=== PATIENT | female | born 1960 | race Caucasian/White ===

== ENCOUNTER 2016-03-21 22:25 | Emergency (ER) | payer BC ==
[2016-03-21 22:30] VITALS: BP 192/91; TEMP 98.3
[2016-03-21] MEDS ORDERED: SODIUM CHLORIDE 0.9% 1,000 ML IV STA (22:40)
[2016-03-21] MEDS ORDERED: KETOROLAC 30 MG/ML 1 ML VIAL IVP STA (22:40)
--- NOTE | 2016-03-21 22:53 | ED ---
Fall HPI - General Chief Complaint: Fall Stated Complaint: hip pain Time Seen by Provider: 03/21/16 22:34 Source: patient, RN notes reviewed Mode of arrival: ambulatory - History of Present Illness Initial Comments: 55-year-old female presents to the emergency department with a chief complaint bilateral sided rib pain. Patient about a week ago she tripped and fell. Patient states this causes some increased left hip pain and low back pain. Patient states that then today she started to have some bilateral rib pain. Patient states she felt short of breath and pain when she takes a deep breath. Patient states any heaviness she is not really nauseated there is no diaphoresis with this. Patient states this was new today. Patient's scheduled a doctor's note for tomorrow she just was not comfortable when she is sleeping so she was concerned. Patient denies any recent fever, chills, shortness of breath, abdominal pain, nausea vomiting, numbness or tingling, dysuria or hematuria, constipation or diarrhea, headaches or visual changes, or any other current symptoms. - Related Data Home Medications Medication Instructions Recorded Confirmed Insulin Aspart [NovoLOG] See Protocol SQ AC-TID 12/04/14 03/21/16 Insulin Glargine [Lantus] 35 unit SQ HS 12/04/14 03/21/16 Aspirin EC [Ecotrin Low Dose] 81 mg PO DAILY 03/21/16 03/21/16 Cholecalciferol [Vitamin D3] 1,000 unit PO DAILY 03/21/16 03/21/16 Pyridoxine [Vitamin B-6] 50 mg PO DAILY 03/21/16 03/21/16 Brea's Wort 150 mg PO DAILY 03/21/16 03/21/16 Allergies Allergy/AdvReac Type Severity Reaction Status Date / Time No Known Allergies Allergy Verified 03/21/16 23:40 Review of Systems ROS Statement: Those systems with pertinent positive or pertinent negative responses have been documented in the HPI. ROS Other: All systems not noted in ROS Statement are negative. Past Medical History Past Medical History: Diabetes Mellitus History of Any Multi-Drug Resistant Organisms: None Reported Past Surgical History: Breast Surgery, Heart Catheterization, Orthopedic Surgery , Uterine Ablation Past Psychological History: No Psychological Hx Reported Smoking Status: Never smoker Past Alcohol Use History: None Reported Past Drug Use History: None Reported General Exam - General Exam Comments Initial Comments: General: The patient is awake and alert, in no distress, and does not appear acutely ill. Eye: Pupils are equal, round and reactive to light, extra-ocular movements are intact; there is normal conjunctiva bilaterally. No signs of icterus. Ears, nose, mouth and throat: There are moist mucous membranes and no oral lesions. Neck: The neck is supple, there is no tenderness. Cardiovascular: There is a regular rate and rhythm. No murmur, rub or gallop is appreciated. tenderness to The bilateral sides of the ribs. Respiratory: Lungs are clear to auscultation, respirations are non-labored, breath sounds are equal. No wheezes, stridor, rales, or rhonchi. Gastrointestinal: Soft, non-distended, non-tender abdomen without masses or organomegaly noted. There is no rebound or guarding present. No CVA tenderness. Bowel sounds are unremarkable. Back: There is no tenderness to palpation in the midline. There is no obvious deformity. No rashes noted. Musculoskeletal: Normal ROM, no tenderness, There is no pedal edema. There is no calf tenderness or swelling. Sensation intact. Pulses equal bilaterally 2+. Neurological: CN II-XII intact, There are no obvious motor or sensory deficits. Coordination appears grossly intact. Speech is normal. Skin: Skin is warm and dry and no rashes or lesions are noted. Psychiatric: Cooperative, appropriate mood & affect, normal judgment. Limitations: no limitations Course Vital Signs 03/21/16 22:27 Temperature 98.3 F Pulse Rate 63 Respiratory 18 Rate Blood Pressure 192/91 O2 Sat by Pulse 97 Oximetry - Reevaluation(s) Reevaluation #1: 03/22/16 01:25 Patient was reassessed. Patient states that she is feeling better her pain is completely resolved. Patient states she's somewhat better. X-rays are reviewed that showed no acute process. We discussed the patient is most likely suffering from a lumbar strain due to the fall and then as well as a thoracic strain due to the fall as well. We did discuss patient's laboratory discussed. in the morning return parameters. Patient stated that she understood all her questions have been answered. She will be discharged home. Medical Decision Making - Medical Decision Making 55-year-old female presents emergency department with a chief complaint of low back and left hip pain along with bilateral rib pain. - Lab Data Result diagrams: 03/21/16 23:13 03/21/16 23:13 Lab Results 03/21/16 03/21/16 03/21/16 Range/Units 23:13 23:13 23:13 WBC 8.3 (3.8-10.6) k/uL RBC 5.10 (3.80-5.40) m/uL Hgb 14.5 (11.4-16.0) gm/dL Hct 44.0 (34.0-46.0) % MCV 86.4 (80.0-100.0) fL MCH 28.5 (25.0-35.0) pg MCHC 33.0 (31.0-37.0) g/dL RDW 13.5 (11.5-15.5) % Plt Count 161 (150-450) k/uL Neutrophils % 59 % Lymphocytes % 30 % Monocytes % 7 % Eosinophils % 3 % Basophils % 1 % Neutrophils # 4.8 (1.3-7.7) k/uL Lymphocytes # 2.4 (1.0-4.8) k/uL Monocytes # 0.5 (0-1.0) k/uL Eosinophils # 0.2 (0-0.7) k/uL Basophils # 0.1 (0-0.2) k/uL PT 10.6 (9.0-12.0) sec INR 1.0 (<1.1) APTT 22.8 (22.0-30.0) sec D-Dimer 0.21 (<0.60) mg/L FEU Sodium 137 (137-145) mmol/L Potassium 4.2 (3.5-5.1) mmol/L Chloride 100 (98-107) mmol/L Carbon Dioxide 25 (22-30) mmol/L Anion Gap 12 mmol/L BUN 18 H (7-17) mg/dL Creatinine 0.55 (0.52-1.04) mg/dL Est GFR (MDRD) Af Amer >60 (>60 ml/min/1.73 sqM) Est GFR (MDRD) Non-Af >60 (>60 ml/min/1.73 sqM) Glucose 407 H (74-99) mg/dL POC Glucose (mg/dL) (75-99) mg/dL POC Glu Assessor ID Calcium 9.5 (8.4-10.2) mg/dL Total Bilirubin 0.7 (0.2-1.3) mg/dL AST 51 H (14-36) U/L ALT 125 H (9-52) U/L Alkaline Phosphatase 72 (38-126) U/L Troponin I (0.000-0.034) ng/mL Total Protein 6.6 (6.3-8.2) g/dL Albumin 4.1 (3.5-5.0) g/dL 03/21/16 03/22/16 Range/Units 23:13 00:26 WBC (3.8-10.6) k/uL RBC (3.80-5.40) m/uL Hgb (11.4-16.0) gm/dL Hct (34.0-46.0) % MCV (80.0-100.0) fL MCH (25.0-35.0) pg MCHC (31.0-37.0) g/dL RDW (11.5-15.5) % Plt Count (150-450) k/uL Neutrophils % % Lymphocytes % % Monocytes % % Eosinophils % % Basophils % % Neutrophils # (1.3-7.7) k/uL Lymphocytes # (1.0-4.8) k/uL Monocytes # (0-1.0) k/uL Eosinophils # (0-0.7) k/uL Basophils # (0-0.2) k/uL PT (9.0-12.0) sec INR (<1.1) APTT (22.0-30.0) sec D-Dimer (<0.60) mg/L FEU Sodium (137-145) mmol/L Potassium (3.5-5.1) mmol/L Chloride (98-107) mmol/L Carbon Dioxide (22-30) mmol/L Anion Gap mmol/L BUN (7-17) mg/dL Creatinine (0.52-1.04) mg/dL Est GFR (MDRD) Af Amer (>60 ml/min/1.73 sqM) Est GFR (MDRD) Non-Af (>60 ml/min/1.73 sqM) Glucose (74-99) mg/dL POC Glucose (mg/dL) 358 H (75-99) mg/dL POC Glu Assessor ID Benita Quiles Calcium (8.4-10.2) mg/dL Total Bilirubin (0.2-1.3) mg/dL AST (14-36) U/L ALT (9-52) U/L Alkaline Phosphatase (38-126) U/L Troponin I <0.012 (0.000-0.034) ng/mL Total Protein (6.3-8.2) g/dL Albumin (3.5-5.0) g/dL 03/22/16 01:28 normal sinus rhythm 61 bpm, normal axis, no atopy, no S-T depressions or elevations, - Radiology Data Radiology results: report reviewed, image reviewed Interpreted by me: Chest x-ray: 2 view, interpreted by me: No sign of lobar consolidation, pneumothorax,osseousstructuresappearintact,awaitingofficialradiologyread. Disposition Clinical Impression: Fall, Lumbar strain, Contusion of left hip, Costochondritis Disposition: HOME SELF-CARE Condition: Stable Instructions: Lower Back Exercises (ED) Additional Instructions: Please use medication as discussed. Please follow up with family doctor if symptoms have not improved over the next two days. Please return to the emergency room if your symptoms increase or worsen or for any other concerns. Referrals: Becky Greene DO [Primary Care Provider] - 1-2 days Time of Disposition: 01:37
[2016-03-21 23:33] LABS: ALT 125 U/L (9-52); AST 51 U/L (14-36); Alkaline Phosphatase 72 U/L (38-126); Anion Gap 12 mmol/L; Blood Urea Nitrogen 18 mg/dL (7-17); Calcium 9.5 mg/dL (8.4-10.2); Carbon Dioxide 25 mmol/L (22-30); Chloride 100 mmol/L (98-107); Glucose 407 mg/dL (74-99); Non-African American GFR(MDRD) >60 (>60 ml/min/1.73 sqM); Potassium 4.2 mmol/L (3.5-5.1); Sodium 137 mmol/L (137-145); Total Bilirubin 0.7 mg/dL (0.2-1.3); Total Protein 6.6 g/dL (6.3-8.2)
[2016-03-21 23:44] LABS: Basophils # (A) 0.1 k/uL (0-0.2); Basophils % (A) 1 %; CH 29.5; CHCM 34.3; Eosinophils # (A) 0.2 k/uL (0-0.7); Eosinophils % (A) 3 %; HDW 2.95; HGB 14.5 gm/dL (11.4-16.0); Luc # (Auto) 0.19; Luc % (Auto) 2; Lymphocytes # (A) 2.4 k/uL (1.0-4.8); Lymphocytes % (A) 30 %; MCH 28.5 pg (25.0-35.0); MCV 86.4 fL (80.0-100.0); Mean Platelet Volume 7.4; Monocytes # (A) 0.5 k/uL (0-1.0); Monocytes % (A) 7 %; Neutrophils # (A) 4.8 k/uL (1.3-7.7); Neutrophils % (A) 59 %; Partial Thromboplastin Time 22.8 sec (22.0-30.0); Prothrombin Time 10.6 sec (9.0-12.0); RDW 13.5 % (11.5-15.5); WBC 8.3 k/uL (3.8-10.6); WBC (Perox) 8.08
[2016-03-22] MEDS ORDERED: SODIUM CHLORIDE 0.9% 1,000 ML IV STA (00:23)
[2016-03-22] MEDS ORDERED: INSULIN LISPRO (humaLOG) 300 UNIT/3 ML VIAL SQ ONE (00:23)
[2016-03-22 00:27] LABS: Glucose,Whole Blood 358 mg/dL (75-99)
--- NOTE | 2016-03-22 00:41 | XR ---
EXAMINATION TYPE: XR lumbar spine 2 or 3V DATE OF EXAM: 03/21/2016 11:22 PM CLINICAL HISTORY: Bilateral hip pain. TECHNIQUE: Frontal, lateral, and oblique images of the lumbar spine are obtained. COMPARISON: CT lumbar spine 11/05/2012 FINDINGS: The alignment of vertebral bodies is grossly normal. Mild wedge compression deformity of L 2 vertebra is most likely old. Mild endplate spondylosis is noted with mild degenerative changes in t he lumbar spine. The disc spaces are grossly normal. Surgical clips are noted in the right upper abdomen with cholecystectomy changes. IMPRESSION: No acute fracture or dislocation is seen in the lumbar spine. Mild degenerative changes in the lumbar spine. No significant interval change.
--- NOTE | 2016-03-22 01:15 | XR ---
EXAMINATION TYPE: XR Hip LT and AP Pelvis DATE OF EXAM: 03/21/2016 11:33 PM COMPARISON: NONE HISTORY: Left hip pain TECHNIQUE: A single AP view of the pelvis is obtained. Two views of the left hip are obtained. FINDINGS: There is no acute fracture/dislocation evident in the pelvis. Mild degenerative arthritic changes are suggested in the sacroiliac joints and hip joints bilaterally. The overlying soft tissue appears unremarkable. Two views of left hip show no acute fracture or dislocation. No focal lytic or sclerotic lesion seen in the proximal left femur. The overlying soft tissue is unremarkable. Mild degenerative changes a re suggested in the left hip joint. IMPRESSION: There is no acute fracture or dislocation in the pelvis or left hip. Mild degenerative a rthritic changes are suggested in the left hip joint.
[2016-03-22 01:42] VITALS: PULSE 61; RESP 16
--- NOTE | 2016-03-22 08:17 | XR ---
EXAMINATION TYPE: XR chest 2V DATE OF EXAM: 03/22/2016 7:24 AM COMPARISON: NONE HISTORY: Cough FINDINGS: Lungs are clear. No pleural effusion or pneumothorax. Hypertrophic change of the spine noted. Chronic appearing deformities of the right rib cage suggest remote trauma. IMPRESSION: 1. No acute process.
== END 2016-03-22 01:40 | disposition home or self-care (01) ==
LOC: EC 22:25
DX: S70.02XA Contusion of left hip, initial encounter (principal); S39.012A Strain of muscle, fascia and tendon of lower back, initial encounter; M94.0 Chondrocostal junction syndrome [Tietze]; E11.9 Type 2 diabetes mellitus without complications; Z79.4 Long term (current) use of insulin; Z79.82 Long term (current) use of aspirin; Z98.61 Coronary angioplasty status; Z79.899 Other long term (current) drug therapy; W01.0XXA Fall on same level from slipping, tripping and stumbling without subsequent striking against object, initial encounter
CPT/HCPCS: 99284; 96374; 96361 ×2; 36415 ×2; 93005; 85379; 80053; 84484; 85025; 85610; 85730; 71020; 72100; 73502; J1885

== ENCOUNTER 2019-08-11 00:14 | Emergency (ER) | payer BC ==
[2019-08-11 00:30] VITALS: BP 144/90; PULSE 73; RESP 20; TEMP 98.1
[2019-08-11] MEDS ORDERED: HYDROcodone/APAP 5-325MG 1 EACH TAB PO STA (01:17)
[2019-08-11] MEDS ORDERED: cefTRIAXone 1,000 MG VIAL (IM USE) IM STA (02:10)
[2019-08-11] MEDS ORDERED: ACET/COD 300 MG/30 MG STARTER PACK 6 TAB BTL PO STA (02:30)
--- NOTE | 2019-08-11 02:32 | ED ---
General Adult HPI - General Chief complaint: ENT Stated complaint: LT earache Time Seen by Provider: 08/11/19 00:57 Source: patient, family, RN notes reviewed, old records reviewed Mode of arrival: ambulatory Limitations: no limitations - History of Present Illness Initial comments: 59-year-old female patient received evaluation of left ear pain. Patient was has been ongoing for the last 4 days. Patient was seen by primary care provider and initiated on oral Augmentin and Polytrim drops. She reports that the pain has not improved at all. Denies any recent swimming or exposure to water. Denies any other complaints. Denies any otorrhea. Systemic: Pt denies fatigue, fever/chills, rash. Pt denies weakness, night sweats, weight loss. Neuro: Pt denies headache, visual disturbances, syncope or pre-syncope. HEENT: Pt denies ocular discharge or irritation, rhinorrhea, pharyngitis or notable lymphadenopathy. Cardiopulmonary: Pt denies chest pain, SOB, heart palpitations, dyspnea on exertion. Abdominal/GI: Pt denies abdominal pain, n/v/d. : Pt denies dysuria, burning w/ urination, frequency/urgency. Denies new onset urinary or bowel incontinence. MSK: Pt denies myalgia, loss of strength or function in extremities. Neuro: Pt denies new onset weakness, paresthesias. - Related Data Home Medications Medication Instructions Recorded Confirmed Insulin Aspart [NovoLOG] See Protocol SQ AC-TID 12/04/14 03/21/16 Insulin Glargine [Lantus] 35 unit SQ HS 12/04/14 03/21/16 Aspirin EC [Ecotrin Low Dose] 81 mg PO DAILY 03/21/16 03/21/16 Cholecalciferol [Vitamin D3] 1,000 unit PO DAILY 03/21/16 03/21/16 Pyridoxine [Vitamin B-6] 50 mg PO DAILY 03/21/16 03/21/16 Brea's Wort 150 mg PO DAILY 03/21/16 03/21/16 Allergies Allergy/AdvReac Type Severity Reaction Status Date / Time No Known Allergies Allergy Verified 08/11/19 00:30 Review of Systems ROS Statement: Those systems with pertinent positive or pertinent negative responses have been documented in the HPI. ROS Other: All systems not noted in ROS Statement are negative. Past Medical History Past Medical History: Diabetes Mellitus History of Any Multi-Drug Resistant Organisms: None Reported Past Surgical History: Breast Surgery, Heart Catheterization, Orthopedic Surgery, Uterine Ablation Past Psychological History: No Psychological Hx Reported Smoking Status: Never smoker Past Alcohol Use History: None Reported Past Drug Use History: None Reported General Exam - General Exam Comments Initial Comments: Constitutional: NAD, AOX3, Pt has pleasant affect. HEENT: NC/AT, trachea midline, neck supple, no lymphadenopathy. Posterior pharynx non erythematous, without exudates. External ears appear normal, without discharge. Right tympanic membrane nonerythematous no bulging or perforation. Auditory canal non-erythematous or edematous. Left tympanic membrane erythematous with mild bulging. No otorrhea. Left auditory canal is mildly erythematous and edematous. No posterior mastoid tenderness bilaterally. Mucous membranes moist. Eyes PERRLA, EOM intact. There is no scleral icterus. No pallor noted. Cardiopulmonary: RRR, no murmurs, rubs or gallops, no JVD noted. Lungs CTAB in anterior and posterior villagran. No peripheral edema. Abdominal exam: Abdomen soft and non-distended. Abdomen non-tender to palpation in all 4 quadrants. Bowel sounds active in LLQ. No hepatosplenomegaly. No ecchymosis Neuro: CN II-XII grossly intact. No nuchal rigidity. No raccon eyes, no do sign, no hemotympanum. MSK:Full active ROM in upper and lower extremities, 5/5 stregnth. Limitations: no limitations Course Vital Signs 08/11/19 00:26 Temperature 98.1 F Pulse Rate 73 Respiratory 20 Rate Blood Pressure 144/90 O2 Sat by Pulse 97 Oximetry Medical Decision Making - Medical Decision Making 59-year-old female patient received evaluation of left ear pain. Patient was has been ongoing for the last 4 days. Patient was seen by primary care provider and initiated on oral Augmentin and Polytrim drops. She reports that the pain has not improved at all. Denies any recent swimming or exposure to water. Denies any other complaints. Denies any otorrhea. Physical symptoms are stable, afebrile. Physical exam displayed left tympanic membranes to be erythematous and bulging left auditory canal to be erythematous edematous. Patient administered analgesic emergency department. Administered 1 g of Rocephin intramuscularly. Patient will be changed from Polytrim to ofloxacin drops. Will follow up with ENT and PCP tomorrow. Case discussed with Dr. Llanos. Disposition Clinical Impression: Otitis media Disposition: HOME SELF-CARE Condition: Stable Instructions (If sedation given, give patient instructions): Ear Infection (ED) Additional Instructions: Continue taking Augmentin. Use new ear drops 10 drops in left ear once per day for 7 days. Discontinue previous ear drops. Follow with ear nose and throat physician tomorrow. Follow-up with primary care provider tomorrow. Return to ER if condition worsens. Is patient prescribed a controlled substance at d/c from ED?: No Referrals: Becky Greene DO [Primary Care Provider] - 1-2 days Evelio Hein MD [STAFF PHYSICIAN] - 1-2 days
[2019-08-11] MEDS ORDERED: OFLOXACIN 0.3% OPHTH DROPS 5 ML BOTTLE LEFT EAR STA (02:41)
== END 2019-08-11 03:10 | disposition home or self-care (01) ==
LOC: EC 00:14
DX: H66.92 Otitis media, unspecified, left ear (principal); E11.9 Type 2 diabetes mellitus without complications; Z79.4 Long term (current) use of insulin; Z95.5 Presence of coronary angioplasty implant and graft
CPT/HCPCS: 99283; 96372; J0696

== ENCOUNTER → 2020-04-03 | Outpatient (CLI) | payer BC ==
--- NOTE | 2020-04-07 13:29 | MM ---
Reason for exam: screening (asymptomatic). Last mammogram was performed 5 years and 3 months ago. History: Patient is postmenopausal. Family history of breast cancer in maternal aunt at age 38 and breast cancer in paternal aunt at age 52. Excisional biopsy of the right breast. Right US Core Biopsy of the right breast. Physical Findings: A clinical breast exam by your physician is recommended on an annual basis and results should be correlated with mammographic findings. MG Screening Mammo w CAD Bilateral CC and MLO view(s) were taken. Prior study comparison: January 06, 2015, bilateral MG 3d diag mammo w/cad EMILY. September 18, 2013, left breast MG work up mamm w CAD LT. September 10, 2013, bilateral MG screening mammo w CAD. There are scattered fibroglandular densities. Previous mammotome biopsy in the right breast. Post excisional changes right breast. Stable central left CC asymmetric density. No significant changes when compared with prior studies. ASSESSMENT: Benign, BI-RAD 2 RECOMMENDATION: Routine screening mammogram of both breasts in 1 year.
== END | disposition home or self-care (01) ==
LOC: RADMAMWWP 12:40
PROVIDERS: ATTEND Family Medicine
DX: Z12.31 Encounter for screening mammogram for malignant neoplasm of breast (principal)
CPT/HCPCS: 77067

== ENCOUNTER 2022-02-04 04:54 | Emergency (ER) | payer BC ==
[2022-02-04 05:02] VITALS: BP 164/99; PULSE 71; RESP 16; TEMP 98.2
[2022-02-04 05:02] LABS: Glucose,Whole Blood 309 mg/dL (70-110)
[2022-02-04] MEDS ORDERED: predniSONE 20 MG TAB PO STA (05:12)
[2022-02-04] MEDS ORDERED: KETOROLAC 15 MG/ML 1 ML VIAL IM STA (05:12)
[2022-02-04] MEDS ORDERED: PROCHLORPERAZINE 10 MG TAB PO PRN (05:12)
[2022-02-04] MEDS ORDERED: diphenhydrAMINE 50 MG CAP PO STA (05:12)
--- NOTE | 2022-02-04 05:12 | ED ---
Headache HPI <Nas Zepeda - Last Filed: 02/04/22 12:49> - General Source: RN notes reviewed, old records reviewed Mode of arrival: ambulatory Limitations: no limitations - History of Present Illness MD Complaint: headache -: days(s) (4) Onset Description: gradual Location: frontal Severity: severe Severity scale (1-10): 8 Quality: aching, pulsatile Consistency: constant Improves With: nothing Worsens With: none Context: occurred at rest Associated Symptoms: nausea, vomiting (Started today) Other Symptoms: malaise Treatments Prior to Arrival: none <Humberto Alfred - Last Filed: 02/12/22 23:18> - General Chief Complaint: Headache Stated Complaint: Headache Time Seen by Provider: 02/04/22 05:11 - History of Present Illness Initial Comments: This is a 61-year-old female to the emergency department for evaluation of headache headache is severe. Patient has no recent history of headache no history significant of significant headaches no prior ER visits for headache. Patient states this is the worse headache that she has had she has nausea no vomiting no trauma no fevers. No travel history no sick contacts. No change in medications. No neurological complaints. (Humberto Alfred) - Related Data Home Medications Medication Instructions Recorded Confirmed Aspirin EC [Ecotrin Low Dose] 81 mg PO DAILY 03/21/16 02/04/22 Humulin (Unknown) See Protocol SQ AC-TID 02/04/22 02/04/22 [place]-3/Dha/Epa/Fish Oil [Fish Oil 1 cap PO DAILY 02/04/22 02/04/22 1,000 mg Softgel] Vitamin B Complex 1 cap PO DAILY 02/04/22 02/04/22 Previous Rx's Medication Instructions Recorded Clopidogrel [Plavix] 75 mg PO DAILY #30 tablet 02/04/22 Allergies Allergy/AdvReac Type Severity Reaction Status Date / Time No Known Allergies Allergy Verified 02/04/22 12:03 Review of Systems ROS Other: All systems not noted in ROS Statement are negative. <Nas Zepeda - Last Filed: 02/04/22 12:49> ROS Other: All systems not noted in ROS Statement are negative. <Humberto Alfred - Last Filed: 02/12/22 23:18> ROS Statement: Those systems with pertinent positive or pertinent negative responses have been documented in the HPI. Past Medical History Past Medical History: Diabetes Mellitus History of Any Multi-Drug Resistant Organisms: None Reported Past Surgical History: Breast Surgery, Heart Catheterization, Orthopedic Surgery, Uterine Ablation Past Psychological History: No Psychological Hx Reported Smoking Status: Never smoker Past Alcohol Use History: None Reported Past Drug Use History: None Reported <Humberto Alfred - Last Filed: 02/12/22 23:18> General Exam Limitations: no limitations General appearance: alert, in no apparent distress, anxious Head exam: Present: atraumatic, normocephalic, normal inspection Eye exam: Present: normal appearance, PERRL, EOMI. Absent: scleral icterus, conjunctival injection, periorbital swelling ENT exam: Present: normal exam, mucous membranes moist Neck exam: Present: normal inspection. Absent: tenderness, meningismus, lymphadenopathy Respiratory exam: Present: normal lung sounds bilaterally. Absent: respiratory distress, wheezes, rales, rhonchi, stridor Cardiovascular Exam: Present: regular rate, normal rhythm, normal heart sounds. Absent: systolic murmur, diastolic murmur, rubs, gallop, clicks GI/Abdominal exam: Present: soft, normal bowel sounds. Absent: distended, tenderness, guarding, rebound, rigid Extremities exam: Present: normal inspection, full ROM, normal capillary refill. Absent: tenderness, pedal edema, joint swelling, calf tenderness Back exam: Present: normal inspection Neurological exam: Present: alert, oriented X3, CN II-XII intact Psychiatric exam: Present: normal affect, normal mood Skin exam: Present: warm, dry, intact, normal color. Absent: rash <Humberto Alfred - Last Filed: 02/12/22 23:18> Course <Humberto Alfred - Last Filed: 02/12/22 23:18> Vital Signs 02/04/22 04:59 Temperature 98.2 F Pulse Rate 71 Respiratory 16 Rate Blood Pressure 164/99 O2 Sat by Pulse 98 Oximetry - Reevaluation(s) Reevaluation #1: 02/03/22 Medical record is reviewed Patient symptoms improved here in the ER Patient informed of results and questions answered (Humberto Alfred) Medical Decision Making - Radiology Data Radiology results: report reviewed (CT brain CT angios had neck negative for acute disease), image reviewed <Humberto Alfred - Last Filed: 02/12/22 23:18> - Medical Decision Making 61 female to the emergency department was severe headache worse headache of life. Patient is CT brain CT had given pain control for headache OB seen by neurology here in the ER (Humberto Alfred) - Lab Data Lab Results 02/04/22 Range/Units 05:00 POC Glucose (mg/dL) 309 H (70-110) mg/dL POC Glu Drug Worker ID Concetta Antonio Disposition <Nas Zepeda - Last Filed: 02/04/22 12:49> Is patient prescribed a controlled substance at d/c from ED?: No Time of Disposition: 07:10 <Humberto Alfred - Last Filed: 02/12/22 23:18> Clinical Impression: CVA (cerebral vascular accident), Headache Disposition: Left Against Medical Advice Condition: Good Instructions (If sedation given, give patient instructions): Acute Headache (ED) Prescriptions: Clopidogrel [Plavix] 75 mg PO DAILY #30 tablet Referrals: None,Stated [REFERRING] - 1-2 days
[2022-02-04] MEDS ORDERED: diphenhydrAMINE 50 MG/ML 1 ML VIAL IVP STA (05:17)
[2022-02-04] MEDS ORDERED: DEXAMETHASONE SOD PHOSPHATE 10 MG/ML 1 ML VIAL IV STA (05:17)
[2022-02-04] MEDS ORDERED: SODIUM CHLORIDE 0.9% 1,000 ML IV STA (05:17)
[2022-02-04] MEDS ORDERED: KETOROLAC 15 MG/ML 1 ML VIAL IVP STA ×2 (05:17→10:54)
[2022-02-04] MEDS ORDERED: PROCHLORPERAZINE INJ 10 MG/2 ML VIAL IVP STA (05:18)
--- NOTE | 2022-02-04 08:26 | CT ---
EXAMINATION TYPE: CT angio COW [place] DATE OF EXAM: 02/04/2022 HISTORY: Headache X4 days, nausea/vomiting COMPARISON: 12/04/2014 CT DLP: 1317.4 mGycm. Automated Exposure Control for Dose Reduction was Utilized. TECHNIQUE: CTA scan of the neck is performed without and with IV Contrast, patient injected with 100 mL of Isovue 370, axial images are obtained, coronal and sagittal reformatted images are reviewed. T hree-D reconstructed images are created on an independent workstation and reviewed. Source images ar e reviewed. FINDINGS: CT brain: No suspicious changes for acute intracranial hemorrhage. No acute infarcts are evident. Ryan e subtle subcortical hypodensity is present in the posterior left parietal region. This is age indete rminant. Consider follow-up MRI. Chronic white matter ischemic changes could be considered. This was not present previously. Ventricles and sulci are appropriate for the patient's age. No mass effect or masses are evident. Cervical of [place]: Vertebral basilar system appears normal. Posterior cerebral vasculature is unrema rkable. Internal carotid arteries bifurcate normally into A1 and M1 segments. A2 segments are normal. The anterior communicating artery is patent. Posterior communicating arteries not clearly identified . IMPRESSION: 1. No acute intracranial process radiographically evident. There is some subcortical hypodensity with in the left parietal region of indeterminate age. Consider follow-up MRI to evaluate acute versus chr onic ischemic change. 2. No suspicious acute [place] changes.
--- NOTE | 2022-02-04 13:05 | P.CNNES ---
History of Present Illness Consult date: 02/04/22 Requesting physician: Nas Zepeda Reason for Consult: Abnormal CT head, TIA History of Present Illness: Patient is a 61-year-old right-handed female, with history of diabetes since age 10 years,, but never been told of hypertension, X smoker, came to the hospital today at 4:54 AM because her symptoms started on 02/01/2022 on waking up, when she felt dizzy, headache, nausea. She felt bad, still went to work but was sent home. When she came home, she was talking funny, slightly slurred speech. The slurred speech lasted for all day, and then resolved by the next day. The next day on Monday, she had a bad headache, not feeling well. She saw her primary physician, who felt patient may have a TIA. She took a day off. Patient states that her headache was frontal, last night was very severe 12/10 with nausea and some vomiting, which now has gone. She was light and noise sensitive. The headache was more than her usual migraine. Vital signs unremarkable blood pressure 164/99, pulse rate 71, respirations 16. Computed tomography scan of head and CTA of head and neck revealed no acute intracranial process. Radiographically evident. There is some subcortical hypodensity within the left parietal region of indeterminate age. I personally reviewed CT had come agree with the findings. Consider follow-up MRI to evaluate acute versus chronic ischemic change. No suspicious acute [place] of [place] changes. Patient has history of diabetes for 12 years, never been told of hypertension although she does run high blood pressure. Patient's diabetes is not well controlled with last A1c 10 couple months ago. She has smoked 1 pack per day, off and on for 20 years. She quit tobacco use 25 years ago. she denies any tobacco use or marijuana. Patient has history of migraines for a long time, but has not had any migraines for the last 3 years. Her headaches went into remission since she developed menopause. Her migraines previously used to occur twice a week lasting for about 12 hours. Patient has been taking aspirin 81 mg daily for last 20 years regularly. Patient denies any history of strokes or TIA. Patient does complain of blurred vision on Monday and morning, today she was feeling spots in her vision in her eyes. Denies any numbness tingling focal weakness or facial droop. Review of Systems Constitutional: Denies chills, Denies fever Eyes: bilateral blurred vision, bilateral tunnel vision/blind spots, denies pain Ears: deny: decreased hearing Ears, nose, mouth and throat: Reports headache, Denies sore throat Cardiovascular: Denies chest pain, Denies shortness of breath Respiratory: Denies cough, Denies wheezing Gastrointestinal: Reports nausea, Reports vomiting, Denies abdominal pain, Denies diarrhea Genitourinary: Denies dysuria, Denies hematuria Musculoskeletal: Denies myalgias Integumentary: Denies pruritus, Denies rash Neurological: Reports as per HPI Psychiatric: Denies anxiety, Denies depression Past Medical History Past Medical History: Diabetes Mellitus History of Any Multi-Drug Resistant Organisms: None Reported Past Surgical History: Breast Surgery, Heart Catheterization, Orthopedic Surgery, Uterine Ablation Past Psychological History: No Psychological Hx Reported Smoking Status: Never smoker Past Alcohol Use History: None Reported Past Drug Use History: None Reported Medications and Allergies Home Medications Medication Instructions Recorded Confirmed Type Aspirin EC [Ecotrin Low Dose] 81 mg PO DAILY 03/21/16 02/04/22 History Clopidogrel [Plavix] 75 mg PO DAILY #30 tablet 02/04/22 Rx Humulin (Unknown) See Protocol SQ AC-TID 02/04/22 02/04/22 History [place]-3/Dha/Epa/Fish Oil [Fish Oil 1 cap PO DAILY 02/04/22 02/04/22 History 1,000 mg Softgel] Vitamin B Complex 1 cap PO DAILY 02/04/22 02/04/22 History Allergies Allergy/AdvReac Type Severity Reaction Status Date / Time No Known Allergies Allergy Verified 02/04/22 12:03 Physical Examination - Vital Signs Vital Signs: Vital Signs Temp Pulse Resp BP Pulse Ox 02/04/22 04:59 98.2 F 71 16 164/99 98 Intake and Output 02/03/22 02/04/22 02/04/22 22:59 06:59 14:59 Other: Weight 112.491 kg Patient is a late middle-aged female, in no acute distress. Patient is alert awake oriented to time place and person. Speech and language functions are normal. Patient can name and repeat very well. No aphasia or dysarthria. Attention, concentration and fund of knowledge is adequate. On cranial nerve examination, pupils are equal, round and reacting to light, visual villagran are full on confrontation, with no neglect on double simultaneous stimulation. Extraocular muscles are intact with slight nystagmus to the right. Face is symmetric, tongue protrudes to the midline. Palatal elevation and sensation normal, hearing and shoulder shrug normal, facial sensation normal. On muscle strength testing, there is mild right pronator drift and the strength is normal in arms and legs distally and proximally. Deep tendon reflexes are symmetric, and plantars upgoing bilaterally. Sensory to touch is equal with no neglect on double simultaneous stimulation. Cerebellar function showed no ataxia for [id number] testing. No dysdiadochokinesia. No ataxia for mraa-ps-[id number] testing on either side. Tone and bulk of muscles normal. Gait deferred.. On general examination, there is no carotid bruit or murmur, S1-S2 audible. Chest is clear on consultation. Abdomen is soft nontender. No organomegaly, bowel sounds present. Peripheral pulses are present. No edema. Results - Laboratory Findings Abnormal Lab Findings: Abnormal Labs 02/04/22 05:00 POC Glucose (mg/dL) 309 H Assessment and Plan Assessment: * Probable ischemic stroke manifesting with transient slurred speech, that lasted for 24 hours on 02/01/2022. On examination at this time, there is mild right pronator drift, otherwise examination is nonfocal. * Abnormal CT head, with evidence of possible subacute to chronic ischemia left frontal and left parietal region. * Diabetes, uncontrolled * Hypertension * Obesity * X tobacco use Plan: * Recommend admission to the hospital for observation and workup as below. * MRI brain evaluate for an acute stroke * 2-D echo with bubble study to rule out PFO * Hemoglobin A1c * Lipid panel * Telemetry monitoring * Suggest switching from aspirin to Plavix 75 mg daily. * Patient wants to go home. In that case she may have to sign out AMA. Discussed with the ED staff. * Thank you for the consult.
== END 2022-02-04 13:01 | disposition left against medical advice (07) ==
LOC: EC 04:54
DX: I63.9 Cerebral infarction, unspecified (principal); E11.9 Type 2 diabetes mellitus without complications; I10 Essential (primary) hypertension; E66.9 Obesity, unspecified; Z79.4 Long term (current) use of insulin; Z79.82 Long term (current) use of aspirin; Z68.45 Body mass index [BMI] 70 or greater, adult
CPT/HCPCS: 96375 ×2; 96361 ×2; 96376 ×2; 96374 ×2; 99285 ×2; 36415; 70496; J1200; J0780; J1100; J1885; Q9967

== ENCOUNTER → 2022-07-21 | Outpatient (CLI) | payer OTHER ==
--- NOTE | 2022-07-22 08:38 | MM ---
Reason for Exam: Screening (asymptomatic). Last mammogram was performed 2 year(s) and 4 month(s) ago. Patient History: Menarche at age 9. First Full-Term at age 19. Left ovary removed at age 48. Postmenopausal. Hormonal Contraceptives for 2 years from age 14 until age 16. Core Biopsy on the Right side. Excisional Biopsy on the Right side. Paternal aunt had breast cancer, age 52. Maternal aunt had breast cancer, age 38. Sister had breast cancer, age 41. Risk Values: Collette 5 year model risk: 4.9%. NCI Lifetime model risk: 19.6%. Prior Study Comparison: 09/18/2013 Left Diagnostic Mammogram, [facility]. 01/06/2015 Bilateral Diagnostic Mammogram, [facility]. 04/03/2020 Bilateral Screening Mammogram, [facility]. Tissue Density: There are scattered fibroglandular densities. Findings: Analyzed By CAD. No suspicious calcifications. Nodular density upper outer left breast 13 cm from the nipple requires additional evaluation. Overall Assessment: Incomplete: need additional imaging evaluation, BI-RAD 0 Management: Diagnostic Mammogram of the left breast. . Patient should continue monthly self-breast exams. A clinical breast exam by your physician is recommended on an annual basis. This exam should not preclude additional follow-up of suspicious palpable abnormalities. Note on Collette scores and lifetime risk: 1. A Collette score greater than 3% is considered moderate risk. If this is the case, consider specialist referral to assess eligibility for a risk reducing agent. 2. If overall lifetime risk for the development of breast cancer is 20% or higher, the patient may qualify for future screening with alternating mammogram and breast MRI. Electronically signed and approved by: Harpreet Baker M.D. Radiologis
== END | disposition home or self-care (01) ==
LOC: RADMAMWWP 16:55
PROVIDERS: ATTEND Family Medicine
DX: Z12.31 Encounter for screening mammogram for malignant neoplasm of breast (principal); Z80.3 Family history of malignant neoplasm of breast; Z78.0 Asymptomatic menopausal state
CPT/HCPCS: 77067

== ENCOUNTER → 2022-09-01 | Outpatient (CLI) | payer OTHER ==
--- NOTE | 2022-09-01 09:23 | MM ---
Reason for Exam: Additional evaluation requested from abnormal screening. Last screening mammogram was performed 1 month(s) ago. Patient History: Menarche at age 9. First Full-Term at age 19. Left ovary removed at age 48. Postmenopausal. Hormonal Contraceptives for 2 years from age 14 until age 16. Core Biopsy on the Right side. Excisional Biopsy on the Right side. Paternal aunt had breast cancer, age 52. Maternal aunt had breast cancer, age 38. Sister had breast cancer, age 41. Risk Values: Collette 5 year model risk: 5.1%. NCI Lifetime model risk: 19.0%. Prior Study Comparison: 01/06/2015 Bilateral Diagnostic Mammogram, [facility]. 04/03/2020 Bilateral Screening Mammogram, [facility]. 07/21/2022 Bilateral MG screening mammo w CAD, [facility]. Tissue Density: Left: There are scattered fibroglandular densities. Findings: Analyzed By CAD. Persistent 8 mm circumscribed isodense mass roughly 2:00 position middle to posterior depth left breast. Additional benign vascular and secretory calcifications are noted. Further ultrasound evaluation recommended. Overall Assessment: Incomplete: need additional imaging evaluation, BI-RAD 0 Management: Diagnostic Breast Ultrasound of the left breast. Electronically signed and approved by: Hawk Zapien M.D. Radiologist
--- NOTE | 2022-09-01 09:59 | USB ---
Patient History: Menarche at age 9. First Full-Term at age 19. Left ovary removed at age 48. Postmenopausal. Hormonal Contraceptives for 2 years from age 14 until age 16. Core Biopsy on the Right side. Excisional Biopsy on the Right side. Paternal aunt had breast cancer, age 52. Maternal aunt had breast cancer, age 38. Sister had breast cancer, age 41. Risk Values: Collette 5 year model risk: 5.1%. NCI Lifetime model risk: 19.0%. Technique: Method: Targeted. Prior Study Comparison: 01/06/2015 Bilateral Diagnostic Mammogram, [facility]. 04/03/2020 Bilateral Screening Mammogram, [facility]. 07/21/2022 Bilateral MG screening mammo w CAD, [facility]. Findings: The upper section of the breast of the left breast, the axilla of the left breast and the retroareolar of the left breast were scanned. Targeted ultrasound left breast 2:00 position, 13 cm from the nipple shows a 8 x 7 x 5 mm oval circumscribed very hypoechoic, possibly cystic lesion. It is located deep. Some possible faint posterior through transmission. A cyst is suspected and likely corresponds to the mammographic finding. Six-month follow-up mammogram recommended.. Overall Assessment: Probably benign, BI-RAD 3 Management: Diagnostic Mammogram of the left breast in 6 months. For suspected cyst. This exam should not preclude additional follow-up of suspicious palpable abnormalities. Patient should continue monthly self breast exams. Results were given to the patient verbally at the time of exam. Electronically signed and approved by: Hawk Zapien M.D. Radiologist
== END | disposition home or self-care (01) ==
LOC: RADMAMWWP 08:46
PROVIDERS: ATTEND Family Medicine
DX: R92.8 Other abnormal and inconclusive findings on diagnostic imaging of breast (principal); Z78.0 Asymptomatic menopausal state; Z80.3 Family history of malignant neoplasm of breast
CPT/HCPCS: 77061; 77065

== ENCOUNTER 2023-03-07 14:06 | Emergency (ER) | payer OTHER ==
--- NOTE | 2023-03-07 14:23 | ED ---
General Adult HPI - General Source: patient, RN notes reviewed Mode of arrival: wheelchair Limitations: no limitations <Arelis Ramirez - Last Filed: 03/07/23 14:22> - General Source: RN notes reviewed, old records reviewed Mode of arrival: wheelchair Limitations: no limitations - History of Present Illness -: days(s) Location: left, lower extremity Radiation: extremity Severity scale (1-10): 7 Quality: sharp Consistency: constant Improves with: none Worsens with: none Treatments Prior to Arrival: none <Humberto Alfred - Last Filed: 03/13/23 16:41> - General Chief complaint: Extremity Injury, Lower Stated complaint: Fall-Left knee injury Time Seen by Provider: 03/07/23 14:22 - History of Present Illness Initial comments: 62 year old female presents to the emergency department for evaluation of left knee pain. Patient states she slipped on ice today and states "my knee bent back." She reports pain with weight bearing since the incident. (Arelis Ramirez) This is a 62-year-old female to the emergency department for evaluation of left knee pain after slipping on ice with severe knee pain inability with the swelling. Pain with weightbearing. No other traumatic injury (Humberto Alfred) - Related Data Home Medications Medication Instructions Recorded Confirmed [place]-3/Dha/Epa/Fish Oil [Fish Oil 1 cap PO HS 02/04/22 03/07/23 1,000 mg Softgel] Cyanocobalamin (Vitamin B-12) 1,000 mcg PO DAILY 03/07/23 03/07/23 [Vitamin B-12] Furosemide [Lasix] 40 mg PO DAILY 03/07/23 03/07/23 Insulin Degludec [Tresiba 30 units SQ DAILY 03/07/23 03/07/23 Flextouch U-200 Pen] Magnesium Oxide [Magnesium] 500 mg PO DAILY 03/07/23 03/07/23 Otc Allergy Medication (Unknown) 1 tab PO HS 03/07/23 03/07/23 Potassium Chloride ER [K-Dur 10] 10 meq PO DAILY 03/07/23 03/07/23 Semaglutide [Ozempic] 0.5 mg SQ DIRECTED 03/07/23 03/07/23 Allergies Allergy/AdvReac Type Severity Reaction Status Date / Time No Known Allergies Allergy Verified 03/07/23 15:58 Review of Systems ROS Other: All systems not noted in ROS Statement are negative. <AshleyArelis - Last Filed: 03/07/23 14:22> ROS Other: All systems not noted in ROS Statement are negative. <Humberto Alfred - Last Filed: 03/13/23 16:41> ROS Statement: Those systems with pertinent positive or pertinent negative responses have been documented in the HPI. Past Medical History Past Medical History: Diabetes Mellitus History of Any Multi-Drug Resistant Organisms: None Reported Past Surgical History: Breast Surgery, Heart Catheterization, Orthopedic Surgery, Uterine Ablation Past Psychological History: No Psychological Hx Reported Smoking Status: Never smoker Past Alcohol Use History: None Reported Past Drug Use History: None Reported <AshleyArelis - Last Filed: 03/07/23 14:22> General Exam <Albino Ramirezsey - Last Filed: 03/07/23 14:22> General appearance: alert, in no apparent distress Head exam: Present: atraumatic, normocephalic, normal inspection Eye exam: Present: normal appearance, PERRL, EOMI. Absent: scleral icterus, conjunctival injection, periorbital swelling ENT exam: Present: normal exam, mucous membranes moist Neck exam: Present: normal inspection. Absent: tenderness, meningismus, lymphadenopathy Respiratory exam: Present: normal lung sounds bilaterally. Absent: respiratory distress, wheezes, rales, rhonchi, stridor Cardiovascular Exam: Present: regular rate, normal rhythm, normal heart sounds. Absent: systolic murmur, diastolic murmur, rubs, gallop, clicks GI/Abdominal exam: Present: soft, normal bowel sounds. Absent: distended, tenderness, guarding, rebound, rigid Extremities exam: Present: normal inspection, full ROM, normal capillary refill. Absent: tenderness, pedal edema, joint swelling, calf tenderness Back exam: Present: normal inspection Neurological exam: Present: alert, oriented X3, CN II-XII intact Psychiatric exam: Present: normal affect, normal mood Skin exam: Present: warm, dry, intact, normal color. Absent: rash <Humberto Alfred - Last Filed: 03/13/23 16:41> - General Exam Comments Initial Comments: Visual Physical Exam Vital signs reviewed General: Well-appearing, nontoxic, no acute distress. Head: Normocephalic, atraumatic Eyes: PERRLA, EOMI ENT: Airway patent Chest: Nonlabored breathing Skin: No visual rash, normal skin tone Neuro: Alert and oriented 3 Musculoskeletal: No gross abnormalities (Arelis Ramirez) Course <Humberto Alfred - Last Filed: 03/13/23 16:41> Vital Signs 03/07/23 03/07/23 14:20 16:37 Temperature 98.1 F 98.3 F Pulse Rate 75 67 Respiratory 18 18 Rate Blood Pressure 140/74 161/52 O2 Sat by Pulse 96 98 Oximetry - Reevaluation(s) Reevaluation #1: Medical records reviewed (Humberto Alfred) Reevaluation #2: Patient symptoms improved (Humberto Alfred) Reevaluation #3: Patient informed results and questions have been answered (Humberto Alfred) Reevaluation #4: Was pt. sent in by a medical professional or institution (, PA, CABINET WORKER, urgent care, hospital, or senior living...) When possible be specific @ -no Did you speak to anyone other than the patient for history (EMS, parent, family, police, friend...)? What history was obtained from this source @ -no Did you review nursing and triage notes (agree or disagree)? Why? @ -agree Are old charts reviewed (outside hosp., previous admission, EMS record, old EKG, old radiological studies, urgent care reports/EKG's, senior living records)? Re port findings @ -yes Differential Diagnosis (chest pain, altered mental status, abdominal pain women, abdominal pain men, vaginal bleeding, weakness, fever, dyspnea, syncope, headache, dizziness, GI bleed, back pain, seizure, CVA, palpatations, mental health, musculoskeletal)? @ -prior EKG interpreted by me (3pts min.). @ -no X-rays interpreted by me (1pt min.). @ -yes negative for acute disease CT interpreted by me (1pt min.). @ -no U/S interpreted by me (1pt. min.). @ -no What testing was considered but not performed or refused? (CT, X-rays, U/S, labs)? Why? @ -none What meds were considered but not given or refused? Why? @ -none Did you discuss the management of the patient with other professionals (professionals i.e. , PA, CABINET WORKER, lab, RT, psych nurse, social problems specialist, consumer recruiter, t eacher, traffic control officer, case maker)? Give summary @ -no Was smoking cessation discussed for >3mins.? @ -no Were there social determinants of health that impacted care today? How? (Homelessness, low income, unemployed, alcoholism, drug addiction, transportation, low edu. Level, literacy, decrease access to med. care, [facility], rehab)? @ -none Was there de-escalation of care discussed even if they declined (Discuss DNR or withdrawal of care, Hospice)? DNR status @ -no What co-morbidities impacted this encounter? (DM, HTN, Smoking, COPD, CAD, Cancer, CVA, ARF, Chemo, Hep., AIDS, mental health diagnosis, sleep apnea, morbid obesity)? @ -none Was patient admitted / discharged? Hospital course, mention meds given and route, prescriptions, significant lab abnormalities, going to OR and other p ertinent info. @ - 62 female to the ER today for evaluation of knee pain severe knee pain which is improved here in the ER, patient will follow-up with orthopedic palpation for further evaluation of knee effusion Discharged Was critical care preformed (if so, how long)? @ -no Undiagnosed new problem with uncertain prognosis? @ -no Drug Therapy requiring intensive monitoring for toxicity (Heparin, Nitro, Insulin, Cardizem)? @ -no Were any procedures done? @ -no Diagnosis/symptom? @ -Left knee sprain with effusion Acute, or Chronic, or Acute on Chronic? @ -Acute Uncomplicated (without systemic symptoms) or Complicated (systemic symptoms)? @ -Complicated Side effects of treatment? @ -no Exacerbation, Progression, or Severe Exacerbation? @ -exacerbation Poses a threat to life or bodily function? How? (Chest pain, [place], [place], pneumonia, PE, COPD, DKA, ARF, appy, cholecystitis, CVA, Diverticulitis, Homicidal, Suicidal, threat to staff... and all critical care pts) @ -no (Humberto Alfred) Medical Decision Making <Arelis Ramirez - Last Filed: 03/07/23 14:22> - Radiology Data Radiology results: report reviewed (X-ray left knee is negative for acute disease), image reviewed <Humberto Alfred - Last Filed: 03/13/23 16:41> - Medical Decision Making Quick note preformed by Arelis Ramirez PA-C (Arelis Ramirez) 62 female to the ER today for evaluation of knee pain severe knee pain which is improved here in the ER, patient will follow-up with orthopedic palpation for further evaluation of knee effusion (Humberto Alfred) Disposition <Arelis Ramirez - Last Filed: 03/07/23 14:22> Is patient prescribed a controlled substance at d/c from ED?: No Time of Disposition: 16:00 <Humberto Alfred - Last Filed: 03/13/23 16:41> Clinical Impression: Left knee pain, Effusion, left knee, Knee contusion Disposition: HOME SELF-CARE Condition: Good Instructions (If sedation given, give patient instructions): Knee Sprain (ED), Knee Pain (ED) Referrals: Becky Greene DO [Primary Care Provider] - 1-2 days Nas Escalante DO [Doctor of Osteopathic Medicine] - 1-2 days
[2023-03-07 14:35] VITALS: RESP 18
--- NOTE | 2023-03-07 15:22 | XR ---
EXAMINATION TYPE: XR knee complete LT DATE OF EXAM: 03/07/2023 COMPARISON: None HISTORY: 62-year-old female with fall and knee pain, limited range of motion TECHNIQUE: AP, oblique, and lateral views FINDINGS: There is osteopenia. No acute fracture, subluxation, dislocation is seen. IMPRESSION: No acute osseous abnormality seen. If symptoms persist, MRI can be considered.
[2023-03-07] MEDS ORDERED: ACET/COD 300 MG/30 MG STARTER PACK 6 TAB BTL PO STA (15:52)
[2023-03-07] MEDS ORDERED: IBUPROFEN 600 MG STARTER PACK 4 TAB BTL PO STA (15:52)
[2023-03-07] MEDS ORDERED: KETOROLAC 15 MG/ML 1 ML VIAL IM STA (15:52)
[2023-03-07] MEDS ORDERED: Acetaminophen-Codeine 300-30mg TAB PO STA (15:52)
[2023-03-07 16:51] VITALS: BP 161/52; PULSE 67; TEMP 98.3
== END 2023-03-07 16:39 | disposition home or self-care (01) ==
LOC: EC 14:06
DX: S80.02XA Contusion of left knee, initial encounter (principal); E11.9 Type 2 diabetes mellitus without complications; Z79.4 Long term (current) use of insulin; Z79.85 Long-term (current) use of injectable non-insulin antidiabetic drugs; W00.0XXA Fall on same level due to ice and snow, initial encounter
CPT/HCPCS: 73562; 99283; 96372; J1885

== ENCOUNTER → 2023-08-02 | Outpatient (CLI) | payer MEDICARE, OTHER ==
--- NOTE | 2023-08-31 12:01 | MM ---
Reason for Exam: Follow-up at short interval from prior study. Last screening mammogram was performed 12 month(s) ago. Patient History: Menarche at age 9. First Full-Term at age 19. Left ovary removed at age 48. Postmenopausal. Hormonal Contraceptives for 2 years from age 14 until age 16. Core Biopsy on the Right side. Excisional Biopsy on the Right side. Paternal aunt had breast cancer, age 52. Maternal aunt had breast cancer, age 38. Sister had breast cancer, age 41. Risk Values: Collette 5 year model risk: 5.1%. NCI Lifetime model risk: 19.0%. Prior Study Comparison: 04/03/2020 Bilateral Screening Mammogram, [facility]. 07/21/2022 Bilateral MG screening mammo w CAD, [facility]. 09/01/2022 Left MG 3D diag mammo w/cad LT, [facility]. Tissue Density: The breasts are heterogeneously dense, which may obscure small masses. Findings: Analyzed By CAD. A benign appearing lymph nodes are seen. There is benign appearing calcifications with previous biopsy clip in the right breast. Distortion within the right breast compatible with previous excisional biopsy. Chronic nodularity in the outer margin of the left breast. Overall Assessment: Benign, BI-RAD 2 Management: Screening Mammogram of both breasts in 1 year. . Results were given to the patient verbally at the time of exam. Patient should continue monthly self-breast exams. A clinical breast exam by your physician is recommended on an annual basis. This exam should not preclude additional follow-up of suspicious palpable abnormalities. Note on Collette scores and lifetime risk: 1. A Collette score greater than 3% is considered moderate risk. If this is the case, consider specialist referral to assess eligibility for a risk reducing agent. 2. If overall lifetime risk for the development of breast cancer is 20% or higher, the patient may qualify for future screening with alternating mammogram and breast MRI. Electronically signed and approved by: Low Covarrubias M.D. Radiologis
== END | disposition home or self-care (01) ==
LOC: RADMAMWWP 14:21
PROVIDERS: ATTEND Family Medicine
DX: R92.333 Mammographic heterogeneous density, bilateral breasts (principal); R92.8 Other abnormal and inconclusive findings on diagnostic imaging of breast; Z80.3 Family history of malignant neoplasm of breast; Z78.0 Asymptomatic menopausal state
CPT/HCPCS: 77066; G0279; 77062

== ENCOUNTER → 2024-08-08 | Outpatient (CLI) | payer MEDICARE, OTHER ==
--- NOTE | 2024-08-08 07:40 | MM ---
Reason for Exam: Screening (asymptomatic). Last screening mammogram was performed 12 month(s) ago. Patient History: Menarche at age 9. First Full-Term at age 19. Left ovary removed at age 48. Postmenopausal. Hormonal Contraceptives for 2 years from age 14 until age 16. Core Biopsy on the Right side. Excisional Biopsy on the Right side. Paternal aunt had breast cancer, age 52. Maternal aunt had breast cancer, age 38. Sister had breast cancer, age 41. Risk Values: Collette 5 year model risk: 5.2%. NCI Lifetime model risk: 18.4%. Prior Study Comparison: 07/21/2022 Bilateral MG screening mammo w CAD, [facility]. 09/01/2022 Left MG 3D diag mammo w/cad LT, [facility]. 08/02/2023 Bilateral MG 3D diag mammo w/cad [facility], [facility]. Tissue Density: There are scattered areas of fibroglandular density. Findings: Analyzed By CAD. Chronic nodularity upper outer quadrant left breast. Scattered benign vascular and secretory calcifications are redemonstrated. There is an asymmetric density are unchanged. Faint grouped calcifications central outer left cc view middle depth remain unchanged. There is no suspicious group of microcalcifications or new suspicious mass in either breast. Overall Assessment: Benign, BI-RAD 2 Management: Screening Mammogram of both breasts in 1 year. See note below in regards to the patient's increased 5 year Collette score. Patient should continue monthly self-breast exams. A clinical breast exam by your physician is recommended on an annual basis. This exam should not preclude additional follow-up of suspicious palpable abnormalities. Note on Collette scores and lifetime risk: 1. A Collette score greater than 3% is considered moderate risk. If this is the case, consider specialist referral to assess eligibility for a risk reducing agent. 2. If overall lifetime risk for the development of breast cancer is 20% or higher, the patient may qualify for future screening with alternating mammogram and breast MRI. [facility], , 08/08/2024 7:37 AM. Electronically signed and approved by: Hawk Zapien M.D. Radiologist
== END | disposition home or self-care (01) ==
LOC: RADMAMWWP 06:59
PROVIDERS: ATTEND Family Medicine
DX: Z12.31 Encounter for screening mammogram for malignant neoplasm of breast (principal); R92.323 Mammographic fibroglandular density, bilateral breasts; R92.1 Mammographic calcification found on diagnostic imaging of breast; Z80.3 Family history of malignant neoplasm of breast; Z78.0 Asymptomatic menopausal state; Z92.0 Personal history of contraception
CPT/HCPCS: 77063; 77067